=== PATIENT | female | born 1950 | race Caucasian/White ===

== ENCOUNTER 2017-01-28 06:14 | Day surgery (SDC) | payer MEDICAID ==
[~2017-01-28] VITALS: Ht 152.4 cm; Wt 47.6 kg
[2017-01-28] MEDS ORDERED: ASPI81EC98 PO (07:30)
[2017-01-28] MEDS ORDERED: HYDR-1098 PO (07:31)
[2017-01-28] MEDS ORDERED: TERA5CAP8 PO (07:32)
[2017-01-28] MEDS ORDERED: LOSA25TA22 PO (07:32)
[2017-01-28] MEDS ORDERED: VITD1000 PO (07:33)
[2017-01-28] MEDS ORDERED: SEVE800T6 PO (07:35)
[2017-01-28] MEDS ORDERED: HUM SUBQ (07:36)
[2017-01-28] MEDS ORDERED: LANTUS SUBQ (07:36)
[2017-01-28] MEDS ORDERED: LIDOCAINE 2% 100 MG/5 ML UJET TP ONE (07:45)
[2017-01-28] MEDS ORDERED: fentaNYL 0.05 MG/ML VIAL ONE (07:47)
== END 2017-01-28 08:40 | disposition home or self-care (01) ==
LOC: MDS 06:14 → MMU 06:31 → MDS 08:40
PROVIDERS: ATTEND Internal Medicine Gastroenterology
DX: Z12.11 Encounter for screening for malignant neoplasm of colon (principal)
CPT/HCPCS: 45378; 82948; J3010; J7030